=== PATIENT | female | born 1985 | race Caucasian/White ===

== ENCOUNTER 2021-05-18 18:52 | Emergency (ER) | payer BC, SELFPAY ==
[2021-05-18 19:14] VITALS: BP 114/77; PULSE 67; RESP 18; TEMP 35.8; O2SAT 100; BMI 27.3
[2021-05-18 20:31] LABS: Glucose Urine UA NEG (NEG); Leukocyte Esterase Urine 3+ (NEG); Nitrite Urine NEG (NEG); PH 6.5 (5.0-8.0); Specific Gravity - Urine <= 1.005 (1.005-1.025); UACC Culture Trigger YES; Urine Blood 3+ (NEG); Urine Ketones NEG (NEG); Urine Protein NEG (NEG-TRACE)
[2021-05-18 20:32] LABS: Appearance Urine HAZY; Color Urine STRAW
[2021-05-18 20:34] LABS: UPreg QC Valid YES; Urine Pregnancy NEGATIVE (NEGATIVE)
--- NOTE | 2021-05-18 20:41 | ED.FEMALEGU ---
HPI - Female Genitourinary General Chief complaint: Urogenital-Female Stated complaint: UTI, STD test Time Seen by Provider: 05/18/21 20:32 Source: patient Mode of arrival: ambulatory Limitations: no limitations History of Present Illness HPI Narrative: 35-year-old female here with complaints of urinary burning, frequency and urgency for several days. Patient was treated for yeast infection with Diflucan on Monday. She has a follow-up appointment tomorrow the primary care doctor. No fevers, chills, nausea, vomiting. Patient is sexually active with 1 sexual partner. She is not concern for STD exposure. Related Data Previous Rx's Medication Instructions Recorded fluconazole 150 mg tablet 150 mg PO Q3D #2 tab 05/18/21 (Diflucan) nitrofurantoin 100 mg PO Q12H 5 Days #10 cap 05/18/21 monohydrate/macrocrystals 100 mg capsule (Macrobid) phenazopyridine 100 mg tablet 100 mg PO TID PRN #10 tab 05/18/21 (Pyridium) Allergies Allergy/AdvReac Type Severity Reaction Status Date / Time No Known Allergies Allergy Verified 05/18/21 19:17 Review of Systems Review of Systems: Yes all other systems are reviewed and are negative Constitutional: Constitutional: Reports no additional constitutional complaints, Denies body ache(s), Denies chills, Denies fever(s), Denies headache(s) and Denies weakness Eyes: Eyes: Reports no additional eye complaints and Denies change in vision ENT: Reports system reviewed and no additional complaints, except as documented, Denies dizziness, Denies headache(s), Denies nasal congestion, Denies nasal discharge and Denies neck pain Cardiovascular: Cardiovascular: Reports no additional cardiovascular complaints, Denies chest pain, Denies leg edema and Denies dyspnea Respiratory: Respiratory: Reports no additional respiratory complaints, Denies cough and Denies dyspnea Gastrointestinal: Gastrointestinal: Reports no additional gastrointestinal complaints, Denies abdominal pain, Denies diarrhea, Denies nausea and Denies vomiting Genitourinary: Genitourinary: Reports no additional female genitourinary complaints, Reports dysuria, Denies flank pain, Denies urinary incontinence, Denies urinary hesitancy, Reports urinary urgency, Reports vaginal discharge and Reports vaginal pruritus Musculoskeletal: Musculoskeletal: Reports no additional musculoskeletal complaints, Denies back pain, Denies arthralgias, Denies joint swelling, Denies neck pain, Denies numbness and Denies tingling Integumentary/Breasts: Skin/Breast: Reports system reviewed and no additional complaints, except as docu and Denies rash Neurologic: Reports system reviewed and no additional complaints, except as documented, Denies Abnormal speech present, Denies dizziness, Denies headache(s), Denies numbness, Denies tingling and Denies weakness PMFSH Past Medical History Attestation statement: The following information was validated with the patient. Source: old records reviewed and nursing notes reviewed Medical History No acute medical problems Surgical History H/O sinus surgery History of appendectomy Social History Social History Advance Directives: No Advance Directives Information Provided: No Patient : No Physical Exam Vital Signs: Vital Signs: Last Vital Signs Temp 96.5 F L 05/18/21 19:14 Pulse 67 05/18/21 19:14 Resp 18 05/18/21 19:14 BP 114/77 05/18/21 19:14 Pulse Ox 100 05/18/21 19:14 Body Mass Index 27.3 Const: General: cooperative, healthy appearing, comfortable and no acute distress Orientation/consciousness: patient oriented x3 Limitations: no limitations HENMT: Head: Yes normal to inspection Ears: hearing grossly normal bilaterally General nose exam: Normal external nose present Face and sinus: Yes normal facial exam Mouth: Normal oral and palatal mucosa present Throat: Yes posterior oropharynx normal Eyes: General: appearance normal, both eyes and all related structures Pupils: Equal, round and reactive pupils present Neck: Neck: Yes normal visual inspection Chest: Chest palpation & inspection: normal inspection of the chest Resp: Effort & Inspection: normal respiratory effort Auscultation: clear to auscultation bilaterally Cardio: Rate: regular rate Rhythm: regular rhythm Peripheral pulses: Peripheral pulses 2+ throughout GI: Inspection: Yes normal to inspection Palpation (GI): Soft to palpation and nontender Auscultation: normal bowel sounds : General: Yes no CVA tenderness Back/Spine/Pelvis: Back: no CVA tenderness Thoracic/Lumbar Spine: thoracic and lumbar spine normal to inspection Skin: General skin exam: no rashes or lesions noted Neuro: General: patient oriented x3, no focal motor deficits and normal sensation to monofilament Cranial nerves: Yes Equal, round and reactive pupils present Cognition (Neuro): normal cognition Speech: No Abnormal speech present Gait exam (Neuro): Normal gait present Motor exam (neuro): 5/5 motor strength present throughout Extrem: General: Yes normal to inspection Course Course Course Narrative: 35-year-old female here with urinary symptoms for several days. Also complaining of vaginal discharge and itching with a known [place] infection treated Monday with Diflucan. Continued symptoms despite completing course. Has follow-up tomorrow with her primary care doctor. UA is consistent with UTI. Will treat with course of antibiotics. Patient also self swabbed for CT NG, BV. Deferred treatment until testing has returned. Will treat for [place]. Reviewed worrisome signs and symptoms and when to return to the emergency department. Comfortable discharge home. [facility] - Female Genitourinary Medical Records Attestation: I reviewed the patient's medical records. Lab Data Attestation: I reviewed the patient's lab results. Labs: Lab Results 05/18/21 05/18/21 Range/Units 20:22 20:22 Urine Color STRAW Urine Appearance HAZY Urine pH 6.5 (5.0-8.0) Ur Specific [place] <= 1.005 (1.005-1.025) Urine Protein NEG (NEG-TRACE) MG/DL Urine Glucose (UA) NEG (NEG) MG/DL Urine Ketones NEG (NEG) MG/DL Urine Blood 3+ H (NEG) Urine Nitrite NEG (NEG) Ur Leukocyte Esterase 3+ H (NEG) Urine RBC 15-29 H (0) /HPF Urine WBC 10-14 H (0-4) /HPF Ur Squamous Epith Cells 1+ /LPF Urine Bacteria TRACE /LPF Urine Mucus 1+ /LPF Urine Test NEGATIVE (NEGATIVE) Discharge Plan Discharge Clinical Impression: Urinary tract infection, Vaginitis Patient Disposition: Home, Self-Care Instructions: Urinary Tract Infection in Women (ED), Yeast Infection (ED) Additional Instructions: We have tested you for gonorrhea, chlamydia, Trichomonas, bacterial vaginosis and yeast We will call you if your test results are positive and you need additional treatment We are treating you for urinary tract infection as well as yeast infection Keep your appointment tomorrow with your primary care doctor Prescriptions: New nitrofurantoin monohyd/m-cryst [Macrobid] 100 mg capsule 100 mg PO Q12H 5 Days Qty: 10 RF: 0 phenazopyridine [Pyridium] 100 mg tablet 100 mg PO TID PRN (Reason: pain) Qty: 10 RF: 0 fluconazole [Diflucan] 150 mg tablet 150 mg PO Q3D Qty: 2 RF: 0 Referrals: Renita Martínez PA [Primary Care Provider] - 2 days
[2021-05-18 20:50] LABS: Bacteria Urine TRACE /LPF; Mucus Urine 1+ /LPF; Squamous Epithelial Cell Urine 1+ /LPF
[2021-05-19 09:43] LABS: BV Int Neg Control Negative (Negative); BV Int Pos Control Positive (Positive)
[2021-05-19 09:52] LABS: CT PCR NOT DETECTED (Not Detect.); NG PCR NOT DETECTED (Not Detect.)
== END 2021-05-18 21:30 | disposition home or self-care (01) ==
PROVIDERS: Nurse Practitioner Family; Emergency Provider Emergency Medicine; PCP Physician Assistant
DX: N39.0 Urinary tract infection, site not specified (principal); N76.0 Acute vaginitis
CPT/HCPCS: 81001; 81025; 87086; 87088; 87186; 87480; 87491; 87510; 87591; 87660; 99283; 99284